=== PATIENT | male | born 1960 | race Caucasian/White ===

== ENCOUNTER 2022-01-15 01:39 | Day surgery (SDC) | payer OTHER, SELFPAY ==
[2022-01-14 15:29] VITALS: BMI 20.9
--- NOTE | 2022-01-14 15:36 | PC.NURSE ---
Report to the Outpatient Waiting Room, entrance under the green pavilion located off [facility], at time 1130 on date 01/15/22. OR Time: 1330. - You and your visitor will be asked a series of questions to screen for COVID 19 for your protection. - Only one visitor is allowed at this time. - The patient visitor is requested to leave or wait in car when not with patient. - A mask is required within the hospital. Patients may have clear liquids (water, carbonated beverages, clear teas, apple juice) until 3 hours prior to surgery with a maximum of 20 ounces. - No food from midnight until time of surgery Take the following medications with a SIP of water the morning of surgery: NONE Medications to discontinue per physician: N/A Date to take last dose: N/A Please no make-up, nail vincentian, hairspray, perfume, deodorant, or body powder the day of surgery. No jewelry (including any body piercings) or valuables the day of surgery, leave them at home. Please take a shower or bath the night before, or the morning of, surgery with an antibacterial soap. Wear comfortable, loose fitting clothing. - Jewelry must be removed prior to entering the operating room. Rings and piercings that are not removed may be cut off. - The hospital will not accept responsibility for valuables. - Please leave all valuables, including medications, at home the day of surgery. If you are going home after surgery, a licensed grain combine driver must drive you home. - NO public transportation without another adult. - We recommend that an adult stay with you for 24 hours following discharge. - We also recommend that you do not drive, make important decision, drink alcoholic beverages, or take any drugs that were not prescribed by your health care provider for at least 24 hours after your discharge time. Follow any additional instructions given to you from your surgeon. If you or anyone in your household have experienced Covid symptoms in the past week, please notify your surgeon or the nurse liaison at the phone number below for possible testing. Telephone instructions given to PT - KAZ BILLINGSLEY and asked if any additional questions and then verbalized understanding. Patient advised to call surgeon office or pre surgery nurse liaison [phone] if any additional questions.
[2022-01-15] VITALS (8 sets, daily range): BP systolic 128–167; BP diastolic 71–97; PULSE 61–89; RESP 12–16; TEMP 36.2–37.1; O2SAT 95–100
--- NOTE | 2022-01-15 10:07 | ECG_ITS ---
Measurements Intervals [place] Rate: 76 P: 84 MD: 139 QRS: 60 QRSD: 94 T: 58 QT: 387 QTc: 435 Interpretive Statements SINUS RHYTHM NORMAL ECG Electronically Signed On 01-15-2022 12:38:22 CDT by Enio Talbot D.O.
[2022-01-15] MEDS: ACETAMINOPHEN 500 MG TABLET 1000 MG PO (12:09)
[2022-01-15] MEDS: LACTATED RINGERS 1,000 ML 30 ML IV CONT (12:15)
[2022-01-15] MEDS: KETOROLAC 15 MG/ML VIAL (*BKC) IV PUSH (12:16)
--- NOTE | 2022-01-15 12:42 | WPDHPUPDATE1 ---
History and Physical Update Update Date/Time: 01/15/22 12:42 History and Physical has been reviewed, including an updated exam of the patient. There are NO changes in the patient's condition. Risks, benefits, and alternatives have been discussed and questions answered. Patient agrees to proceed with procedure.
--- NOTE | 2022-01-15 12:43 | P.PNAN_ITS ---
Anes - Initial Pre Proc Eval Procedure: Operation Date: 01/15/22 13:30 Proposed Procedures p Rectal Examination Under Anesthesia, Hemorrhoidectomy - Tammy Carcamo MD Date/Time: 01/15/22 12:43 Surgeon: Tammy Carcamo MD Pre Op Diagnosis: Thrombosed Hemorrhoids Patient Data Age: 61 Gender: M Height: 1.8 m Weight: 68 kg Last Vital Signs Temp 36.2 C L 01/15/22 11:47 Pulse 89 01/15/22 11:47 Resp 16 01/15/22 11:47 BP 142/85 H 01/15/22 11:47 Pulse Ox 95 01/15/22 11:47 O2 Del Method Room Air 01/15/22 11:47 Allergies Allergy/AdvReac Type Severity Reaction Status Date / Time latex AdvReac Intermediate BREAKS OUT Verified 01/15/22 12:00 IF WEARING LATEX GLOVES FOR A PERIOD OF TIME Home Medications Medication Instructions Recorded Confirmed Type ibuprofen-diphenhydramine citrate 2 cap PO HS PRN Pain 01/14/22 01/14/22 History 200 mg-38 mg tablet (Advil PM) Patient hx anesthesia problems: none Family hx anesthesia problems: none Results Review: All pre-operative results and documents have been reviewed as part of the pre- operative evaluation. [facility] Past Medical History Medical History Hemorrhoid prolapse Smoker Surgical History Surgical History (Updated 01/15/22 @ 12:43 by Waldo Stubbs MD) H/O colonoscopy Family History Family History Sibling Family history of heart disease in male family member before age 55 Mother Patient's mother is in good health Father Patient's father is , Onset Age: 75 Social History Social History Smoking packs per day: 1.5 Smoking cigarettes per day: 30.0 Years smoked: 50 Smoking pack-years: 75.00 Smoking status: Current every day smoker Tobacco type: cigarettes Alcohol intake: current Drinks per week: 24 Substance use: current Substance use type: marijuana Living arrangements: with family Spiritual care concerns: No Anes - Eval Final PreProcedure Day of Procedure 01/15/22 12:43 Patient weight: normal Heart: regular rate and rhythm Lungs: clear to auscultation Airway: Mallampati scale class II Neurological: alert and oriented Last oral intake: >/= 8 hours ASA classification: II Emergent: no Anesthetic plan: proceed Anesthesia type and monitoring: general GIVS and standard monitoring Results Review: All pre-operative results and documents have been reviewed as part of the pre- operative evaluation. Informed Consent: The patient's anesthetic plan and its attendant risks and benefits were discussed with the patient/family/POA. Questions were solicited and answers provided to the satisfaction of the patient/family/POA.
[2022-01-15] MEDS: ceFAZolin 2 GM/D5W 50 ML 2 GM/50 ML BAG IVPB (13:21)
[2022-01-15] MEDS: BUPIVACAINE/EPINEPHRINE 0.25% 50 ML VIAL INFILTRATE (13:40)
[2022-01-15] MEDS: GELATIN SPONGE SZ 100 1 EACH TOPICAL (13:48)
[2022-01-15] MEDS: LIDOCAINE HCL 2% JELLY 5 ML TUBE 1 APPLIC MUCOUS MEM (13:51)
--- NOTE | 2022-01-15 13:55 | P.OP_ITS ---
Procedure Note - Detailed Date of Procedure 01/15/22 Pre-op Diagnosis Thrombosed external hemorrhoids Post-op Diagnosis Same Procedure Performed Exam under anesthesia, external hemorrhoidectomy involving left lateral and right anterior positions Surgeon Tammy Carcamo MD Anesthesia General Indications 61 y/o M presenting to office c large thrombosed external hemorrhoids Findings multiple external hemorrhoids predominately in L lateral and R anterior, R ant erior very inflamed, thrombosed Description of Procedure The patient was taken to the operating room and placed in the modified lithotomy position. After adequate induction of general anesthesia, the patient was prepped and draped in the normal sterile fashion. A time-out was then done to verify the patient's identity, as well as the procedure being performed. I began by doing a digital exam. There was noted to be multiple external hemorrhoids, however no internal hemorrhoids were noted. There was a large thrombosed external hemorrhoid at the right anterior position. At this point, a bilateral pudendal block was done. Then used the lone Star retractor to further evaluate the anal canal as well as rectum, other than external hemorrhoi ds no other pathology was noted. I then began excising the external hemorrhoids using the hand-held LigaSure device. The large thrombosed hemorrhoid was excised from the right anterior position. Multiple hemorrhoids were noted to be in the left lateral position and were excised using the LigaSure. The specimens will be sent to pathology for further review. Hemostasis was noted at all excision sites. I then placed a piece of Gelfoam covered with lidocaine jelly into the rectal vault. The patient tolerated the procedure and was extubated in the operating room postop. He will be transferred to the recovery room in stable condition. Implants Gelfoam covered with lidocaine jelly in the rectal vault Estimated Blood Loss 5 Drains No Packing Yes Pathology Yes Complications No immediate complications Condition Stable Disposition PACU [facility] Billing Surgery - Charge Forward: Surgery Billing
== END 2022-01-15 15:34 | disposition home or self-care (01) ==
PROVIDERS: PCP Family Medicine; Visit Provider Surgery
PROC: (CPT 46320; principal; 2022-01-15 13:30)
DX: K64.5 Perianal venous thrombosis (principal); F17.210 Nicotine dependence, cigarettes, uncomplicated
CPT/HCPCS: 46320 ×2; 88304; 93005; A9270; J0690; J1100; J1885; J2250; J2405; J2704; J3010; J7120